=== PATIENT | female | born 1950 | race Caucasian/White ===

== ENCOUNTER → 2016-09-26 | Outpatient (CLI) | payer OTHER, MEDICARE | LOC: FIMAGING 13:20 | DX: Z12.31 Encounter for screening mammogram for malignant neoplasm of breast (principal) | CPT/HCPCS: G0202 ==

== ENCOUNTER → 2016-12-13 | Outpatient (CLI) | payer OTHER, MEDICARE | LOC: FIMAGING 09:59 | PROVIDERS: ATTEND Family Medicine | DX: Z13.820 Encounter for screening for osteoporosis (principal); M85.80 Other specified disorders of bone density and structure, unspecified site ==

== ENCOUNTER → 2017-03-09 | Outpatient (CLI) | payer OTHER, MEDICARE | LOC: FIMAGING 10:36 | PROVIDERS: ATTEND Family Medicine | DX: N28.1 Cyst of kidney, acquired (principal) ==

== ENCOUNTER → 2017-03-15 | Outpatient (CLI) | payer OTHER, MEDICARE ==
[~2017-03-15] MED LIST: IOPAMIDOL (ISOVUE-300) 100 ML BTL ONE
== END ==
LOC: CIMAGING 10:19
PROVIDERS: ATTEND Family Medicine
DX: N28.89 Other specified disorders of kidney and ureter (principal)
CPT/HCPCS: 74178; Q9967; 82565-PO

== ENCOUNTER 2017-04-19 07:17 | Inpatient (IN) | payer OTHER, MEDICARE ==
[2017-04-19] MEDS ORDERED: LIDOCAINE 1% 2 ML INJ ID PRN (07:48)
[2017-04-19] MEDS ORDERED: LR 1,000 ML IV ONE (07:48)
[2017-04-19] MEDS ORDERED: cefOXitin SODIUM 2 GM in D5W 100 ML IV ONE (08:30)
--- NOTE | 2017-04-19 08:50 | PDHPUP ---
History & Physical Update H&P update statement: This history and physical update is based on an assessment of the patient which was completed after admission or registration (within 24 hours), but prior to the surgery/procedure. H&P update: no change in patient's condition since H&P completed
[2017-04-19] MEDS ORDERED: MIDAZOLAM 2 MG/2 ML VIAL IVP ONE (08:52)
--- NOTE | 2017-04-19 08:55 | PDANEPAE ---
ANE History of Present Illness 67 yo with right kidney growth ANE Past Medical History - Cardiovascular History Hx Hypertension: Yes Hx Arrhythmias: No Hx Chest Pain: No Hx Coronary Artery / Peripheral Vascular Disease: No Hx CHF / Valvular Disease: No Hx Palpitations: No Cardiovascular History Comment: BP can run low. - Pulmonary History Hx COPD: No Hx Asthma/Reactive Airway Disease: No Hx Recent Upper Respiratory Infection: No Hx Oxygen in Use at Home: No Hx Sleep Apnea: No Sleep Apnea Screening Result - Last Documented: Positive Pulmonary History Comment: + triggers MOHSEN. Prone to bronchitis- last summer. - Neurologic History Hx Cerebrovascular Accident: No Hx Seizures: No Hx Dementia: No - Endocrine History Hx Diabetes: No - Renal History Hx Renal Disorders: Yes Renal History Comment: R renal mass - Liver History Hx Hepatic Disorders: No - Neurological & Psychiatric Hx Hx Neurological and Psychiatric Disorders: Yes Neurological / Psychiatric History Comment: numbness in bilat hands while sleeping- relieved by position change. Back pain. - Cancer History Hx Cancer: Yes Cancer History Comment: possible cancer R kidney - Congenital Disorder History Hx Congenital Disorders: No - GI History Hx Gastrointestinal Disorders: No - Other Health History Other Health History: hyperlipidema. Arthritic pain -hands-uses CBD/THC oil PRN. - Chronic Pain History Chronic Pain: No - Surgical History Prior Surgeries: C5/C6 ,C6/C7 fusion 10-07-15. LEFT FOOT FX. PARTIAL HYSTERECTOMY. FIBROID TUMOR ANE Review of Systems Review of systems is: negative Review of Systems: - Exercise capacity METS (RN): 4 METS ANE Patient History - Allergies Allergies/Adverse Reactions: roberto Allergy (Verified 03/28/17 14:29) wasp venom Allergy (Uncoded 03/28/17 14:29) Swelling/neck,face,throat - Home Medications Home Medications: Rosuvastatin Calcium [Crestor 5mg] 5 mg PO DAILY 09/20/15 [Last Taken 04/18/17 10:00] Valsartan/Hydrochlorothiazide [Diovan Hct 160-25 mg Tablet] 1 each PO DAILY 04/26 [Last Taken 04/18/17 10:00] Herbals/Supplements -Info Only 1 ea PO DAILY 03/27/17 [Last Taken 04/04/17] Cholecalciferol Vit D3 [Vitamin D3 (*)] 1,000 units PO DAILY 03/28/17 [Last Taken 04/12/17] - NPO status NPO Status: no food or drink >8 hours NPO Since - Liquids (Date): 04/18/17 NPO Since - Liquids (Time): 23:55 NPO Since - Solids (Date): 04/18/17 NPO Since - Solids (Time): 12:00 - Anes Hx Anes Hx: no prior problems - Smoking Hx Smoking Status: Former smoker - Alcohol Use Alcohol Use: Other - Family Anes Hx Family Anes Hx: none Family Hx Anesthesia Complications: NEG ANE Labs/Vital Signs - Vital Signs Blood Pressure: 113/66 Heart Rate: 79 Respiratory Rate: 16 O2 Sat (%): 95 Height: 167.64 cm Weight: 77.111 kg ANE Physical Exam - Airway Neck exam: decreased ROM Mallampati Score: Class 2 Mouth exam: normal dental/mouth exam - Pulmonary Pulmonary: no respiratory distress - Cardiovascular Cardiovascular: regular rate and rhythym - ASA Status ASA Status: II ANE Anesthesia Plan Anesthesia Plan: general endotracheal anesthesia
[2017-04-19] MEDS ORDERED: BUPIVACAINE 0.5% 30 ML SDV ONE (08:58)
[2017-04-19] MEDS ORDERED: MANNITOL 20% 100 GM/500 ML BAG IV ONE (08:58)
[2017-04-19] MEDS ORDERED: INDOCYANINE GREEN 25 MG VIAL ONE (08:58)
[2017-04-19] MEDS ORDERED: PROPOFOL 200 MG/20 ML VIAL ONE (09:06)
[2017-04-19] MEDS ORDERED: ROCURONIUM 50 MG/5 ML VIAL ONE (09:14)
[2017-04-19] MEDS ORDERED: NEOSTIGMINE METHYLSULFATE 3 MG/3 ML SYR ONE ×3 (09:45)
[2017-04-19] MEDS ORDERED: epHEDrine SULFATE 10 MG/ML SYR ONE (09:46)
[2017-04-19] MEDS ORDERED: THROMBIN(HUM PLAS)/FIBRINOG/CA 5 ML VIAL TP ONE (10:50)
[2017-04-19] MEDS ORDERED: NALOXONE HCL 0.4 MG/ML INJ IVP PRN ×2 (12:24→12:58)
[2017-04-19] MEDS ORDERED: PROMETHAZINE HCL 25 MG/ML INJ IVP PRN ×2 (12:24→12:57)
[2017-04-19] MEDS ORDERED: HYDROmorphONE/DILAUDID 1 MG/ML INJ IVP PRN (12:24)
--- NOTE | 2017-04-19 12:25 | POSTANESTH ---
Post Anesthetic Evaluation Cardiovascular Status: Normal, Stable Respiratory Status: Normal, Stable, Requires Airway Assist Level of Consciousness/Mental Status: Can Participate in Eval, Mildly Sleepy, Arousable Pain Control: Adequate, Prn Tx Ordered Nausea/Vomiting Control: Adequate, Prn Tx Ordered Complications Possibly Related to Anesthesia: None Noted
[2017-04-19] MEDS ORDERED: ONDANSETRON 4 MG/2 ML VIAL ONE (12:38)
[2017-04-19] MEDS: ONDANSETRON 4 MG/2 ML VIAL IVP PRN ×2 (12:40→12:51)
[2017-04-19] MEDS ORDERED: fentaNYL 100 MCG/2 ML INJ ONE (12:54)
[2017-04-19] MEDS: fentaNYL 100 MCG/2 ML INJ IVP PRN ×2 (12:55→13:02)
--- NOTE | 2017-04-19 12:55 | POSTOPPROG ---
Post Op Note Date of Operation: 04/19/17 Surgeon: Ori Flores (# [id number]) Green Building Architect: Asiya Larios CFA Anesthesia: GET(General Endotracheal) Pre-op Diagnosis: Right renal mass Post-op Diagnosis: Right renal mass Procedure: Robotic right partial nephrectomy w/ intraoperative ultrasound guidance Findings: See op note Inf/Abcess present in the surg proc area at time of surgery?: No EBL: 50-100 (75 cc) Complications: None Drains: Darryl Gan (10 Flat) Specimen(s): 1. Perirenal fat overlying tumor. 2. Right renal tumor.
[2017-04-19] MEDS ORDERED: ONDANSETRON 4 MG/2 ML VIAL IVP PRN (12:57)
[2017-04-19] MEDS ORDERED: HYDROmorphONE/DILAUDID 6 MG/30 ML PCA IV PRN (12:58)
[2017-04-19] MEDS: D5W 1/2 NS 1,000 ML IV SCH ×2 (14:02→21:49)
[2017-04-19] MEDS ORDERED: NS 1,000 ML IV ONE (18:00)
[2017-04-19] MEDS: HYDROCHLOROTHIAZIDE 25 MG TAB PO SCH (18:01)
[2017-04-19] MEDS: VALSARTAN 160 MG TAB PO SCH (18:03)
[2017-04-19] MEDS: cefOXitin SODIUM 2 GM in D5W 100 ML IV SCH (18:06)
[2017-04-20] MEDS: cefOXitin SODIUM 2 GM in D5W 100 ML IV SCH ×2 (01:24→08:51)
[2017-04-20 05:07] LABS: HEMOGLOBIN 11.5 g/dL (12.6-16.3); MEAN CELL HEMOGLOBIN 31.5 pg (27.9-34.1); MEAN CELL HEMOGLOBIN CONCENTR. 33.8 g/dL (32.4-36.7); MEAN CELL VOLUME 93.2 fL (81.5-99.8); RED BLOOD CELL COUNT 3.65 10^6/uL (4.18-5.33); RED CELL DISTRIBUTION WIDTH 13.5 % (11.5-15.2)
--- NOTE | 2017-04-20 05:20 | GOP ---
[f rep st] OPERATIVE REPORT DATE OF OPERATION: 04/19/2017 SURGEON: Ori Flores MD INDUSTRIAL HIRE SALES ASSISTANT: Asiya Larios CFA ANESTHESIA: General endotracheal anesthesia. PREOPERATIVE DIAGNOSIS: Abnormal right renal mass. POSTOPERATIVE DIAGNOSIS: Abnormal right renal mass. PROCEDURE PERFORMED: Robotically-assisted laparoscopic right partial nephrectomy with intraoperative ultrasound guidance. FINDINGS: Approximately 2 cm right upper pole posterolateral renal tumor. SPECIMENS: 1. Perirenal fat overlying tumor. 2. Right renal tumor. ESTIMATED BLOOD LOSS: Approximately 75 cc. INDICATIONS: This woman was recently found to have an incidental abnormal- appearing solid enhancing right renal mass. She presents for operative management at this time. The indications for the procedures, as well as potential risks and complications, were discussed with the patient preoperatively. She appeared to understand, her questions were answered, and she wished to proceed. Written informed surgical consent was thereafter obtained. DESCRIPTION OF PROCEDURE: The patient was brought to the operating room and administered general endotracheal anesthesia. An orogastric tube was placed by Anesthesia and removed at the conclusion of the case. The patient was then placed over the break of the table, and the table was flexed approximately 20 degrees. The patient was then placed in a right flank up position with a triangular pad placed behind her back. Her right flank was propped up approximately 45 degrees. The left leg was flexed at the knee, and the right leg was kept straight over it. A Blas catheter had been placed to gravity drainage by this point. All appropriate pressure points were padded. An axillary roll was placed. The patient was then secured to the table with several wide strips of tape from head to toe. The right arm was kept extended along her side in a foam trough while the left arm abducted less than 90 degrees on an arm board. Once the patient was thoroughly secured to the table, the table was tilted back and forth to maximum positions to ensure patient stability on the table. This was confirmed. The abdomen was then sterilely prepped and draped in standard fashion utilizing Ioban. A Veress needle was then used to obtain intraabdominal access in the right upper quadrant, close to the midline, approximately retirement between the xiphoid process and the umbilicus. The abdomen was insufflated 15 mmHg pressure, which was the intraabdominal pressure maintained throughout the majority of the case. A 12 mm laparoscopic port was then placed at this site, and proper intraabdominal placement was confirmed with the 0-degree 12 mm robotic camera. I then marked out my remaining port sites which were as follows: A 5 mm laparoscopic liver retractor port placed near the midline just below the xiphoid process, placed just to the right of the falciform ligament; an 8 mm robotic port placed along the right midclavicular line, just below the costal margin; another 8 mm port placed in the lower aspect of the right upper quadrant , roughly in midclavicular line; and a 12 mm laparoscopic industrial hire sales assistant port placed in the midline just below the umbilicus. All these ports were placed under direct vision without complication. At this point, the patient was tilted into right flank up 90-degree position. The robot was then docked perpendicular to the bed and brought in from the patient's back while keeping the center post of the robot in line with the 12 mm laparoscopic port to be used for the camera. The robotic arms were then secured to the appropriate ports. The 0-degree 12 mm camera was used throughout the remainder of the case. I then left the patient's bedside and entered the surgeon's robotic console. I carefully examined the abdominal cavity. The lateral edge of the colon was noted to extend over the midportion of the kidney. The liver was draped over the upper pole of the kidney. I carefully mobilized the colon off the kidney, extending this dissection inferior to the kidney, and reflected the colon medially across the midline. The portion of the duodenum overlying the renal hilum was then identified and carefully dissected across the midline with cold scissors dissection. The underlying vena cava could then be seen. I was then able to carefully identify the location of the renal vein and 2 separate renal arteries that were located just inferior to the renal vein. I completely skeletonized the hilum, and no other significant vascular structures providing blood flow to the kidney were identified. I mobilized the triangular ligament from the liver and transected it with scissors along the lateral abdominal wall. This provided more mobility to the liver and a ratcheted grasper was used through the 5 mm port in order to keep the liver retracted in a cephalad position throughout the remainder of the surgery. I then identified the ureter distal to to the lower pole of the kidney. The gonadal vein was identified and was left in a medial position and not harmed during the remainder of the operation. I then identified the psoas fascia below the perirenal fat inferior to the lower pole of the kidney. I then carefully retracted this up, including the ureter, and dissected posteriorly and medially up toward the previously dissected renal hilum. At this point, I then completed my hilar dissection in order to allow for placement of bulldog clamps during the nephrectomy portion the procedure. Once this was completed, I then excised the perirenal fat off the capsule of the kidney circumferentially. The tumor was identified along the upper pole posterolaterally. The overlying perirenal fat was carefully removed off the tumor and submitted as a permanent histologic specimen, labeled perirenal fat overlying renal tumor. The kidney was eventually completely freed so that it could be more easily mobilized and allow for better exposure of the portion of the kidney containing the mass. Intraoperative ultrasound was then performed. The location of the mass was confirmed sonographically. Measurements were taken, and a copy of these images were placed in the patient's hospital chart. Then, using the ultrasound image as a as a guide, along with robotic visualization, I scored the renal capsule around the tumor circumferentially with the monopolar scissors. An approximately 1 cm margin of normal appearing kidney was included along the circumferential margin, where the dissection would be performed. Once this was completed, vascular bulldog clamps were placed on the different hilar vessels. The 2 renal arteries were clamped 1st, followed by clamp placed over the vena cava. The time was was 11:03. I then used monopolar scissors dissection to excise the tumor completely. Nice adequate gross margins were obtained. The tumor was approximately 2 cm in greatest dimension, according to the intraoperative renal sonography measurements taken. Once the tumor had been excised, a 3-0 Vicryl V-Loc suture was used to reapproximate the deeper layer of the renal defect. A series of running 0 Vicryl sutures was then utilized to reapproximate the renal capsule of the created defect. This was performed utilizing a sliding clip renorrhaphy technique with Hem-o-Renetta clips. Once this closure was completed, the bulldog clamps were then removed; first, the clamp over the vein, followed by the clamps along the arteries. The time was 11:30. Warm ischemia time was therefore 27 mintues. The kidney vascularity was noted to increase visually immediately upon removing the clamps. There was no significant bleeding noted from the renorrhaphy closure. Hemostasis was otherwise present. Evicel was then placed over the renorrhaphy closure, as well as over the anterior aspect of the kidney. This was followed by draping the kidney with a large piece of Surgicel. The Surgicel was also placed over the renorrhaphy closure. The intraabdominal pressure was then temporarily turned down to 5 mmHg. No bleeding was identified. Renal hilar structures were intact. The ureter was intact. The liver was also noted to be unharmed from the operative procedure. The specimen was then retrieved within a 10 mm bag and eventually brought out through the industrial hire sales assistant port. The ratcheted grasper retracting the liver was removed, and the liver was allowed to fall back in its normal anatomic position. A 10 flat Darryl-Gan drain was then placed through the lower 8 mm robotic port in the right upper quadrant. It was ultimately secured to the skin on the outside with a 2-0 silk suture and connected to bulb suction. This completed the robotic portion of procedure. The robot was then undocked from the patient. A fascial closure device and an 0 Vicryl suture was utilized to reapproximate the anterior rectus fascia of the two 12 mm port sites. Before reapproximating the fascia of the industrial hire sales assistant port site, the specimen was delivered from this incision without the need to further extend the fascial opening. All the wounds were anesthetized with a total of 30 cc of 0.5% Marcaine without epinephrine. The skin edges at each of the wound sites were then reapproximated with running 4-0 Monocryl suture in a subcuticular fashion. The skin edges were then dressed with Dermabond. A dressing was placed at the drain site, followed by Tegaderm. The IBETH drain was connected to bulb suction. The patient was then placed back in the supine position. She was awakened, extubated, transferred to her bed, then taken to the recovery room. She tolerated the procedure well overall. COMPLICATIONS: None. DISPOSITION: She was transferred to the recovery room in stable condition and will be admitted for postoperative care. /[id number]/MODL MTDD
[2017-04-20 05:23] LABS: ANION GAP 9 mEq/L (8-16); CARBON DIOXIDE 27 mEq/l (22-31); CHLORIDE 104 mEq/L (97-110); CREATININE 1.5 mg/dL (0.6-1.0); GLOMERULAR FILTRATION RATE 35; GLUCOSE 141 mg/dL (70-100); POTASSIUM 4.1 mEq/L (3.5-5.2); SODIUM 140 mEq/L (134-144)
[2017-04-20] MEDS: HYDROCHLOROTHIAZIDE 25 MG TAB PO SCH (08:54)
[2017-04-20] MEDS: VALSARTAN 160 MG TAB PO SCH (08:54)
[2017-04-20] MEDS ORDERED: HYDROCHLOROTHIAZIDE PO SCH (09:00)
[2017-04-20] MEDS ORDERED: [UNRECOGNIZED DRUG - OTHER] PO SCH (09:00)
[2017-04-20] MEDS ORDERED: VALSARTAN PO SCH (09:00)
--- NOTE | 2017-04-20 10:02 | SOAPPROG ---
SOAP Progress Note Assessment/Plan: Assessment: POD 1 s/p robotic right partial nephrectomy - stable. Plan: 1. Continue postop care. 2. Advance diet, d/c Blas, switch to oral narcotics, ambulate, heplock IV. Subjective: No complaints. Pain controlled w/ ELECTRICAL APPRENTICE. Tolerated CLD. No ambulation yet. Objective: Vital Signs Temp Pulse Resp BP Pulse Ox 36.9 C 95 18 87/58 L 95 04/20/17 07:26 04/20/17 07:26 04/20/17 07:26 04/20/17 07:26 04/20/17 07:26 Laboratory Results 04/20/17 04:31 04/20/17 04:31 04/19/17 04/20/17 04/21/17 05:59 05:59 05:59 Intake Total 4194 Output Total 942 65 Balance 3252 -65 Physical Exam - Physical Exam General Appearance: WD/WN, alert, no apparent distress Abdomen: soft (mild RUQ tenderness), other (incisions c/d/i, IBETH w/ small amount of serosanguinous drainage) Skin: normal color, warm/dry Extremities: non-tender, normal inspection Neuro/Psych: alert, normal mood/affect, oriented x 3 ICD10 Worksheet Patient Problems: Problems Problem Status Onset Cervical vertebral fusion Acute
[2017-04-20] MEDS: OXYCODONE/APAP 5/325 TAB PO PRN ×3 (13:27→21:35)
--- NOTE | 2017-04-20 14:38 | ASMTCMCOM ---
CM Note CM Note Notes: Chart reviewed, Patient s/p partial nephrectomy. Met with pt to review POC. She states she is well supported at home no needs identified. CM available should needs arise. Date Signed: 04/20/2017 02:37 PM Electronically Signed By:Urszula Willard RN
[2017-04-21] MEDS: OXYCODONE/APAP 5/325 TAB PO PRN ×4 (01:24→19:20)
[2017-04-21] MEDS: HYDROCHLOROTHIAZIDE 25 MG TAB PO SCH (08:20)
[2017-04-21] MEDS: VALSARTAN 160 MG TAB PO SCH (08:20)
--- NOTE | 2017-04-21 10:25 | SOAPPROG ---
SOAP Progress Note Assessment/Plan: Assessment: s/p partial nephrectomy low grade temp- likely atlectasis mild post operative ileus- tolerating diet but no flatus post operative hypoxia Plan: Encourage IS and ambulation Await flatus am labs wean O2 04/21/17 10:23 Subjective: Pain reasonably controlled with po pain meds. Still on O2. No flatus. no N/ V. C/o pain with inspiration Objective: Vital Signs Temp Pulse Resp BP Pulse Ox 36.9 C 88 16 93/70 L 93 04/21/17 07:31 04/21/17 07:31 04/21/17 07:31 04/21/17 07:31 04/21/17 07:31 Laboratory Results 04/20/17 04:31 04/20/17 04:31 04/20/17 04/21/17 04/22/17 05:59 05:59 05:59 Intake Total 4194 698 Output Total 942 285 70 Balance 3252 413 -70 Physical Exam - Physical Exam General Appearance: alert, no apparent distress Respiratory: No respiratory distress Abdomen: soft, other (mild distention, wounds CDI) Neuro/Psych: normal mood/affect, oriented x 3 ICD10 Worksheet Patient Problems: Problems Problem Status Onset Cervical vertebral fusion Acute
[2017-04-22] MEDS: OXYCODONE/APAP 5/325 TAB PO PRN (03:48)
[2017-04-22 05:11] LABS: % IMMATURE GRANULYOCYTES 0.4 % (0.0-1.1); ABSOLUTE IMMATURE GRANULOCYTES 0.05 10^3/uL (0.00-0.10); ADD DIFF? NO; ADD MORPH? NO; ADD SCAN? NO; ATYPICAL LYMPHOCYTE FLAG 0 (0-99); FRAGMENT RBC FLAG 0 (0-99); HEMATOCRIT 33.7 % (38.0-47.0); HEMOGLOBIN 11.7 g/dL (12.6-16.3); LEFT SHIFT FLG 0 (0-99); LIPEMIA HEMOLYSIS FLAG 90 (0-99); MEAN CELL HEMOGLOBIN 31.8 pg (27.9-34.1); MEAN CELL HEMOGLOBIN CONCENTR. 34.7 g/dL (32.4-36.7); MEAN CELL VOLUME 91.6 fL (81.5-99.8); MEAN PLATELET VOLUME 10.6 fL (8.7-11.7); PLATELET CLUMPS FLAG 10 (0-99); PLATELET COUNT 165 10^3/uL (150-400); RED BLOOD CELL COUNT 3.68 10^6/uL (4.18-5.33); RED CELL DISTRIBUTION WIDTH 13.8 % (11.5-15.2)
[2017-04-22 05:34] LABS: ANION GAP 11 mEq/L (8-16); CALCIUM 8.2 mg/dL (8.5-10.4); CARBON DIOXIDE 24 mEq/l (22-31); CHLORIDE 101 mEq/L (97-110); CREATININE 1.3 mg/dL (0.6-1.0); GLOMERULAR FILTRATION RATE 41; GLUCOSE 124 mg/dL (70-100); POTASSIUM 3.6 mEq/L (3.5-5.2); SODIUM 136 mEq/L (134-144)
[2017-04-22] MEDS: HYDROCHLOROTHIAZIDE 25 MG TAB PO SCH (08:46)
[2017-04-22] MEDS: VALSARTAN 160 MG TAB PO SCH (08:46)
[2017-04-22] MEDS ORDERED: ACETAMINOPHEN 500 MG TAB PO PRN (09:24)
--- NOTE | 2017-04-22 09:29 | SOAPPROG ---
SOAP Progress Note Assessment/Plan: Assessment: s/p partial nephrectomy Fever, leukocytosis- likely atlectasis, no signs or symptoms of intraabdominal process or wound infection post operative hypoxia- improving Plan: Encourage IS and ambulation CXR, urine culture. Blood cultures if T>101 am labs wean O2 Plan for d/c once fevers resolved 04/21/17 10:23 04/22/17 09:26 Subjective: Had chills, fever, and rigors last night. Small amount of flatus. Pain improved. oxygenation a bit better Objective: Vital Signs Temp Pulse Resp BP Pulse Ox 36.7 C 96 18 105/63 90 L 04/22/17 08:00 04/22/17 08:00 04/22/17 08:00 04/22/17 08:00 04/22/17 08:00 Laboratory Results 04/22/17 04:34 04/22/17 04:34 04/21/17 04/22/17 04/23/17 05:59 05:59 05:59 Intake Total 698 250 Output Total 285 100 Balance 413 150 Physical Exam - Physical Exam General Appearance: alert Respiratory: No respiratory distress Abdomen: soft, other (incisions non tender, no rebound, no erythema or streaking ) ICD10 Worksheet Patient Problems: Problems Problem Status Onset Cervical vertebral fusion Acute
[2017-04-22] MEDS: oxyCODONE IR 5 MG TAB PO PRN ×3 (09:41→21:31)
[2017-04-23 04:31] LABS: % IMMATURE GRANULYOCYTES 0.3 % (0.0-1.1); ABSOLUTE IMMATURE GRANULOCYTES 0.04 10^3/uL (0.00-0.10); ADD DIFF? NO; ADD MORPH? NO; ADD SCAN? NO; ATYPICAL LYMPHOCYTE FLAG 0 (0-99); FRAGMENT RBC FLAG 0 (0-99); HEMATOCRIT 35.5 % (38.0-47.0); HEMOGLOBIN 12.4 g/dL (12.6-16.3); LEFT SHIFT FLG 10 (0-99); LIPEMIA HEMOLYSIS FLAG 90 (0-99); MEAN CELL HEMOGLOBIN 32.4 pg (27.9-34.1); MEAN CELL HEMOGLOBIN CONCENTR. 34.9 g/dL (32.4-36.7); MEAN CELL VOLUME 92.7 fL (81.5-99.8); MEAN PLATELET VOLUME 11.1 fL (8.7-11.7); PLATELET CLUMPS FLAG 0 (0-99); PLATELET COUNT 203 10^3/uL (150-400); RED BLOOD CELL COUNT 3.83 10^6/uL (4.18-5.33); RED CELL DISTRIBUTION WIDTH 14.1 % (11.5-15.2)
--- NOTE | 2017-04-23 09:33 | SOAPPROG ---
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 CXR's, urine and blood cultures negative. PE is negative for fever source. Plan: 1. Continue to monitor today. If she spikes more fevers then will have her get a CT scan. 2. Continue regular diet & ambulation. 3. Benign pathology reviewed w/ pt. & today. Subjective: No complaints except for fevers. Appetite still poor, but she is eating. Passed flatus over the weekend. Voiding well, ambulating independently. Objective: Vital Signs Temp Pulse Resp BP Pulse Ox 37.2 C 92 17 125/77 H 92 04/23/17 08:20 04/23/17 08:20 04/23/17 08:20 04/23/17 08:20 04/23/17 08:20 Laboratory Results 04/23/17 02:45 04/22/17 04:34 04/22/17 04/23/17 04/24/17 05:59 05:59 05:59 Intake Total 250 2049 Output Total 100 Balance 150 2049 Physical Exam - Physical Exam General Appearance: WD/WN, alert, no apparent distress Abdomen: soft (mild RUQ tenderness, incisions c/d/i) Skin: normal color, warm/dry Extremities: non-tender, normal inspection Neuro/Psych: alert, normal mood/affect, oriented x 3 ICD10 Worksheet Patient Problems: Problems Problem Status Onset Cervical vertebral fusion Acute
[2017-04-23] MEDS: VALSARTAN 160 MG TAB PO SCH (09:45)
[2017-04-23] MEDS: HYDROCHLOROTHIAZIDE 25 MG TAB PO SCH (09:45)
[2017-04-23] MEDS: oxyCODONE IR 5 MG TAB PO PRN ×2 (09:50→14:28)
[2017-04-23 11:59] VITALS: TEMP 99.2
[2017-04-23 15:16] VITALS: BP 124/68; PULSE 103; RESP 17
[2017-04-23 15:28] VITALS: O2SAT 87
--- NOTE | 2017-04-23 17:09 | SOAPPROG ---
SOAP Progress Note Assessment/Plan: Assessment: 1. 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 2. Enterococcus UTI -- likely the source of her intermittent fevers. Plan: 1. D/C home on Augmentin and O2. 2. Start Augmentin this evening prior to d/c. (d/c summ. # [id number]) Subjective: No new complaints. Objective: Vital Signs Temp Pulse Resp BP Pulse Ox 37.3 C 103 H 17 124/68 H 87 L 04/23/17 15:13 04/23/17 15:13 04/23/17 15:13 04/23/17 15:13 04/23/17 15:28 Laboratory Results 04/23/17 02:45 04/22/17 04:34 04/22/17 04/23/17 04/24/17 05:59 05:59 05:59 Intake Total 250 2049 Output Total 100 Balance 150 2049 ICD10 Worksheet Patient Problems: Problems Problem Status Onset Cervical vertebral fusion Acute
--- NOTE | 2017-04-23 17:10 | PDHOMEO2F ---
Home Oxygen Face to Face Home Orders: I certify that a physician or a nurse practitioner or physician's producer assistant has had a [id number] encounter with this patient on the date of this order due to the diagnosis listed, which relates to the primary reason the patient requires home oxygen. Alternative treatments have been tried, or considered, and deemed ineffective. It is anticipated that supplemental oxygen will result in improvement with treatment. Home oxygen qualifying diagnosis: Hypoxia SpO2 on room air (%): 87% Frequency of home oxygen needed: continuous Home oxygen liters per minute: 3-4 L Home oxygen delivery device: nasal cannula Concentrator: Yes E-tanks for mobility and back up: Yes If ordering portable O2, is the patient mobile in the home?: Yes I certify that, based on these findings, the home oxygen is medically necessary for this patient for the following length of time. Length of time home oxygen needed: 1 week
[2017-04-23] MEDS ORDERED: AMOX/CLAVULANATE 500/125 MG TAB PO SCH (17:30)
--- NOTE | 2017-04-24 05:15 | GDS ---
[f rep st] DISCHARGE SUMMARY ADMIT DIAGNOSIS: Abnormal right renal mass. DISCHARGE DIAGNOSES: 1. Oncocytoma. 2. Hypoxia. 3. Enterococcal urinary tract infection. PROCEDURES: Robotically-assisted laparoscopic right partial nephrectomy on 04/19/2017. HOSPITAL COURSE: The patient underwent the above-mentioned operative procedure on the day of admissi on. Please refer to the operative report for details regarding this. Postoperatively, the patient d id well overall. However, she did intermittently run fevers up to approximately 38.5 degrees Celsius . Urine and blood cultures were obtained on 04/22. Preliminary results on urine culture revealed gr eater than 100,000 colonies of Enterococcus faecalis, with complete identification and sensitivity st ill pending. Blood cultures have been negative to date. Chest x-ray postoperatively was also negati ve for cause of fever. She otherwise did well from a postoperative standpoint. Her vital signs were stable and postoperative laboratory work was relatively unremarkable. She was tolerating a regular diet by postoperative day 2 and was ambulating by postoperative day 1. She was voiding well after Fo lorne catheter removal and having flatus. Her postoperative physical exam was unremarkable and incisio ns were healing appropriately. Darryl-Gan drainage was relatively unremarkable postoperatively. Her postoperative creatinine was consistent with serum. This was removed on postoperative day 3. Sonia cartagena was then started on Augmentin 500 mg b.i.d. for treatment of her enterococcal UTI and discharged on postoperative day 4 with a prescription for this. She is also being discharged on home oxygen due t o her postoperative hypoxia. The patient is being discharged on her regular medications as well as A ugmentin 500 mg b.i.d., as well as oxycodone 5 mg p.r.n. pain. Activity restriction instructions [place] e been provided. She will continue with a regular diet. She has been instructed to return to my off ice in approximately 3-4 weeks. /[id number]/MODL
--- NOTE | 2017-04-26 14:19 | PQFORM ---
PHYSICIAN QUERY FORM Needs Your Response This query form is being sent to you to assure this patient record is coded properly. Please respond to the question below: SOLE ROUGHER QUESTION: Dear Dr. Flores, In reviewing this patients medical record it is noted patient had the diagnosis of 'Atelectasis.' In the SOAP notes dated 04/21-04/22 patient was noted to have a "low grade temperature- likely atelectasis." On the 04/22 chest X-Ray patient was noted to have "Bilateral lower lobe atelectasis." After study, should the diagnosis of "Atelectasis" be included in the Discharge Summary? Yes __xx___ No Unable to determine Other more appropriate diagnosis Thank you DANILO Sheppard HIM/Coding Dept. [phone] INSTRUCTIONS FOR RESPONSE: Answer question by clicking on the "Edit Document" button. Move cursor to area below the stars. When complete, hit "Save." Click on the "Sign" button, then click "Sign" again. Type in your PIN and hit "Enter." MTDD
== END 2017-04-23 19:09 | disposition home or self-care (01) | DRG 687 ==
LOC: INTOOBSV 07:17 → F3E 07:17 → F1N 07:37 → OBSVTOIN 04-20 15:15
PROVIDERS: ADMIT Specialist; ATTEND Specialist
DX: D30.01 Benign neoplasm of right kidney (principal); N39.0 Urinary tract infection, site not specified; R09.02 Hypoxemia; B95.2 Enterococcus as the cause of diseases classified elsewhere; I10 Essential (primary) hypertension; G47.33 Obstructive sleep apnea (adult) (pediatric); E78.5 Hyperlipidemia, unspecified; Z87.891 Personal history of nicotine dependence
CPT/HCPCS: J0694; J1170; J2250; J2405; J2550; J2704; J2710; J3010

== ENCOUNTER → 2017-05-24 | Outpatient (CLI) | payer OTHER, MEDICARE | LOC: FIMAGING 10:11 | PROVIDERS: ATTEND Specialist | DX: Z08 Encounter for follow-up examination after completed treatment for malignant neoplasm (principal); Z90.5 Acquired absence of kidney | CPT/HCPCS: 74178; Q9967 ==

== ENCOUNTER → 2017-12-11 | Outpatient (CLI) | payer OTHER, MEDICARE | LOC: GIMAGING 14:36 | PROVIDERS: ATTEND Family Medicine | DX: S92.512A Displaced fracture of proximal phalanx of left lesser toe(s), initial encounter for closed fracture (principal) | CPT/HCPCS: 73660-PO ==

== ENCOUNTER → 2018-01-29 | Outpatient (CLI) | payer OTHER, MEDICARE | LOC: FIMAGING 15:20 | PROVIDERS: ATTEND Family Medicine | DX: K57.30 Diverticulosis of large intestine without perforation or abscess without bleeding (principal); N28.1 Cyst of kidney, acquired; Z90.5 Acquired absence of kidney | CPT/HCPCS: 74177; Q9967; 82565-PO ==

== ENCOUNTER 2018-04-08 09:02 | Emergency (ER) | payer OTHER, MEDICARE ==
--- NOTE | 2018-04-08 09:13 | EDPHY ---
H & P Stated Complaint: general abd pain/diarrhea Source: Patient Exam Limitations: No limitations - Personal History Current Tetanus Diphtheria and Acellular Pertussis (TDAP): Yes - Medical/Surgical History Hx Asthma: No Hx Chronic Respiratory Disease: No Hx Diabetes: No Hx Cardiac Disease: No Hx Renal Disease: No Hx Cirrhosis: No Hx Alcoholism: No Hx HIV/AIDS: No Hx Splenectomy or Spleen Trauma: No Other PMH: DDD, HTN, seasonal allergies. partial nehrectomy/htn - Social History Smoking Status: Former smoker Time Seen by Provider: 04/08/18 09:15 HPI/ROS: HPI: This is a 68-year-old female who presents with Chief Complaint: general abd pain/diarrhea Location: Periumbilical abdominal Quality: Pain Duration: Since Sunday morning Signs and Symptoms: no fever, + nausea, no vomiting, no hematemesis, no blood in stool, no abdominal bloating, + diarrhea, no back pain, no urinary symptoms, no vaginal bleeding/discharge, no indigestion, no chest pain, no shortness of breath Timing: Acute onset, worsening Severity: Moderate Context: Patient presents today of waking up Sunday morning with periumbilical, [id number], cramping, nonradiating pain. She reports that she has had decreased appetite and some nausea. She has complained of several loose stools per day. Today the pain has increased in intensity. History of diverticulitis approximately 2 months ago treated with an antibiotic of unknown name. She was then seen by [facility] 2 weeks after her flare-up and had a colonoscopy performed and was"normal" per patient. Denies recent foreign travel, antibiotic use, concern for food poisoning. Modifying Factors: Tylenol gives mild transient relief Comment: ROS: A comprehensive 10 system review of systems is otherwise negative aside from elements mentioned in the history of present illness. MEDICAL/SURGICAL/SOCIAL HISTORY: Medical history: DDD, HTN, seasonal allergies, hypertension Surgical history: Partial nephrectomy Social history: Retired. Nonsmoker. Family history noncontributory. CONSTITUTIONAL: Nontoxic-appearing, polite and cooperative, elderly white female, awake and alert, no obvious distress HEENT: Atraumatic and normocephalic, PERRL, EOMI. Wears glasses, Nares patent; no rhinorrhea; no nasal mucosal edema. Tympanic membranes clear. Oropharynx clear, no exudate and moist pink mucosa. Airway patent. No lymphadenopathy. No meningismus. Cardiovascular: Normal S1/S2, regular rate, regular rhythm, without murmur rub or gallop. PULMONARY/CHEST: Symmetrical and nontender. Clear to auscultation bilaterally. Good air movement. No accessory muscle usage. ABDOMEN: Soft, nondistended, periumbilical and lower quadrant reproducible tenderness, no rebound, no guarding, no peritoneal signs, no masses or organomegaly. No CVAT. Hyperactive bowel sounds heard in the lower quadrants and normoactive bowel sounds heard in the upper quadrants EXTREMITIES: 2/2 pulses, strength 5/5, no deformities, no clubbing, no cyanosis or edema. NEUROLOGICAL: no focal neuro deficits. GCS 15. SKIN: Warm and dry, no erythema. no rash. Good capillary refill. (Dina Velazco) Constitutional: Initial Vital Signs Temperature (C) 36.6 C 04/08/18 09:06 Heart Rate 74 04/08/18 09:06 Respiratory Rate 18 04/08/18 09:06 Blood Pressure 127/80 H 04/08/18 09:06 O2 Sat (%) 98 04/08/18 09:06 O2 Delivery Mode Room Air Allergies/Adverse Reactions: roberto Allergy (Verified 04/08/18 09:02) wasp venom Allergy (Uncoded 03/28/17 14:29) Swelling/neck,face,throat Home Medications: Medication Instructions Recorded Rosuvastatin Calcium [Crestor 5mg] 5 mg PO DAILY 09/20/15 Valsartan/Hydrochlorothiazide 1 each PO DAILY 09/20/15 [Diovan Hct 160-25 mg Tablet] Herbals/Supplements -Info Only 1 ea PO DAILY 03/27/17 Cholecalciferol Vit D3 [Vitamin D3 1,000 units PO DAILY 03/28/17 (*)] Ciprofloxacin [Cipro] 500 mg PO BID #20 tab 04/08/18 Hydrochlorothiazide 04/08/18 metroNIDAZOLE [Flagyl 500 mg (*)] 500 mg PO TID #30 tab 04/08/18 Medical Decision Making - Diagnostics Imaging Results: Imaging Impressions Abdomen CT 04/08/18 09:14 Impression: 1. Acute diverticulitis of the sigmoid colon in a similar segment of sigmoid colon as seen previously. 2. Postsurgical changes of partial nephrectomy right kidney stable in appearance. Renal cortical cysts. Results called and discussed with Dina Velazco on 04/08/2018 at 10:30 a.m. ED Course/Re-evaluation: Vital signs reviewed and stable upon arrival. No systemic signs. IV access and laboratory studies obtain. CT abdomen and pelvis scan ordered to evaluate for diverticulitis, perforation, abscess. Given 1 L normal saline, IV morphine 4 mg (patient refused), IV Zofran 4 mg 0940: Labs reviewed. WBC 8.16, H&H 14/40.2, BUN 24/1.2; chart review shows on January 29, 2018 BUN 26 and creatinine 1.5- this appears to be patient's baseline. No signs of elevated LFTs/pancreatitis/electrolyte imbalance. 0955: Urinalysis shows 4+ bacteria, 5-10 WBCs, 4+ epithelial cells; sent for urine culture; will likely give fluoroquinolone 1030: Called by radiologist, Dr. Sheth, who advised that CT abdomen and pelvis scan shows diverticulitis in the same spot as 2 months ago but no perforation, abscess. Patient given Cipro and Flagyl. Gastroenterology follow- up. Advised diverticular diet. Tolerating oral liquids and adequate pain control so appropriate to treat outpatient. This patient was seen under the supervision of my secondary supervising physician. I evaluated care for this patient independently. Discussed this patient with Dr. Oates. (Dina Velazco) Differential Diagnosis: Abdominal pain including but not limited to appendicitis, cholecystitis, gastritis and urinary tract infection. (Dina Velazco) - Data Points Laboratory Results: Laboratory Results 04/08/18 09:15 04/08/18 09:15 04/08/18 04/08/18 04/08/18 09:29 09:15 09:15 WBC 8.16 10^3/uL 10^3/uL (3.80-9.50) RBC 4.47 10^6/uL 10^6/uL (4.18-5.33) Hgb 14.0 g/dL g/dL (12.6-16.3) Hct 40.2 % % (38.0-47.0) MCV 89.9 fL fL (81.5-99.8) MCH 31.3 pg pg (27.9-34.1) MCHC 34.8 g/dL g/dL (32.4-36.7) RDW 13.2 % % (11.5-15.2) Plt Count 250 10^3/uL 10^3/uL (150-400) MPV 10.0 fL fL (8.7-11.7) Neut % (Auto) 67.6 % % (39.3-74.2) Lymph % (Auto) 25.9 % % (15.0-45.0) Chambers % (Auto) 5.3 % % (4.5-13.0) Eos % (Auto) 0.4 % L % (0.6-7.6) Baso % (Auto) 0.6 % % (0.3-1.7) Nucleat RBC Rel Count 0.0 % % (0.0-0.2) Absolute Neuts (auto) 5.52 10^3/uL 10^3/uL (1.70-6.50) Absolute Lymphs (auto) 2.11 10^3/uL 10^3/uL (1.00-3.00) Absolute Monos (auto) 0.43 10^3/uL 10^3/uL (0.30-0.80) Absolute Eos (auto) 0.03 10^3/uL 10^3/uL (0.03-0.40) Absolute Basos (auto) 0.05 10^3/uL 10^3/uL (0.02-0.10) Absolute Nucleated RBC 0.00 10^3/uL 10^3/uL (0-0.01) Immature Gran % 0.2 % % (0.0-1.1) Immature Gran # 0.02 10^3/uL 10^3/uL (0.00-0.10) Sodium 140 mEq/L mEq/L (135-145) Potassium 4.1 mEq/L mEq/L (3.3-5.0) Chloride 101 mEq/L mEq/L (97-110) Carbon Dioxide 25 mEq/l mEq/l (22-31) Anion Gap 14 mEq/L mEq/L (6-14) BUN 24 mg/dL H mg/dL (7-23) Creatinine 1.2 mg/dL H mg/dL (0.6-1.0) Estimated GFR 45 Glucose 95 mg/dL mg/dL (70-100) Calcium 9.4 mg/dL mg/dL (8.5-10.4) Total Bilirubin 0.7 mg/dL mg/dL (0.1-1.4) Conjugated Bilirubin 0.3 mg/dL mg/dL (0.0-0.5) Unconjugated Bilirubin 0.4 mg/dL mg/dL (0.0-1.1) AST 23 IU/L IU/L (14-46) ALT 28 IU/L IU/L (9-52) Alkaline Phosphatase 55 IU/L IU/L (38-126) Total Protein 7.2 g/dL g/dL (6.3-8.2) Albumin 4.2 g/dL g/dL (3.5-5.0) Lipase 282 IU/L IU/L (23-300) Urine Color ANDREWS Urine Appearance MODERATELY TURBID Urine pH 5.0 (5.0-7.5) Ur Specific [place] 1.028 (1.002-1.030) Urine Protein 1+ H (NEGATIVE) Urine Ketones TRACE H (NEGATIVE) Urine Blood NEGATIVE (NEGATIVE) Urine Nitrate NEGATIVE (NEGATIVE) Urine Bilirubin NEGATIVE (NEGATIVE) Urine Urobilinogen 2.0 EU H EU (0.2-1.0) Ur Leukocyte Esterase NEGATIVE (NEGATIVE) Urine RBC NONE SEEN /hpf /hpf (0-3) Urine WBC 5-10 /hpf H /hpf (0-3) Ur Epithelial Cells 4+ /lpf H /lpf (NONE-1+) Urine Bacteria 4+ /hpf H /hpf (NONE SEEN) Urine Mucus TRACE /lpf /lpf (NONE-1+) Urine Glucose NEGATIVE (NEGATIVE) Medications Given: Discontinued Medications Ciprofloxacin (Cipro) 500 mg PO EDNOW ONE PRN Reason: Protocol Stop: 04/08/18 10:28 Last Admin: 04/08/18 10:47 Dose: 500 mg Sodium Chloride (Ns) 1,000 mls @ 0 mls/hr IV EDNOW ONE; Wide Open PRN Reason: Protocol Stop: 04/08/18 09:15 Last Admin: 04/08/18 09:24 Dose: 1,000 mls Metronidazole (Flagyl) 500 mg PO EDNOW ONE PRN Reason: Protocol Stop: 04/08/18 10:28 Last Admin: 04/08/18 10:46 Dose: 500 mg Morphine Sulfate (Morphine) 4 mg IVP EDNOW ONE Stop: 04/08/18 09:15 Last Admin: 04/08/18 10:35 Dose: Not Given Ondansetron HCl (Zofran) 4 mg IVP EDNOW ONE Stop: 04/08/18 09:15 Last Admin: 04/08/18 10:35 Dose: Not Given Departure - Departure Disposition: Home, Routine, Self-Care Clinical Impression: Cystitis, Diverticulitis of colon (without mention of hemorrhage) Condition: Good Instructions: Diverticulitis (ED), Urinary Tract Infection in Women (ED), Diverticulitis Diet (ED) Additional Instructions: Consume a minimum of 8-10 glasses of water or electrolyte fluid replacement drinks that include Gatorade, Powerade, Pedialyte. Eat a bland/diverticular diet for the next 48 hours and then slowly advance as tolerated. Take Cipro and Flagyl as directed. Do not skip a dose. Follow-up with primary care provider in the next 5-7 days if symptoms are not improving. Return to the Emergency Room if you spike a fever > 102 F, or experience intractable abdominal pain/nausea/vomiting. Referrals: Loc Collier DO [Primary Care Provider] - As per Instructions Nadir Holbrook MD [Medical Doctor] - As per Instructions Prescriptions: Ciprofloxacin [Cipro] 500 mg PO BID #20 tab metroNIDAZOLE [Flagyl 500 mg (*)] 500 mg PO TID #30 tab
[2018-04-08] MEDS ORDERED: NS 1,000 ML IV ONE (09:14)
[2018-04-08] MEDS ORDERED: ONDANSETRON 4 MG/2 ML VIAL IVP ONE (09:14)
[2018-04-08 09:29] LABS: PLATELET COUNT 250 10^3/uL (150-400)
[2018-04-08] MEDS ORDERED: IOPAMIDOL (ISOVUE-300) 100 ML BTL ONE (09:44)
[2018-04-08] MEDS ORDERED: metroNIDAZOLE 500 MG TAB PO ONE (10:27)
[2018-04-08] MEDS ORDERED: CIPROFLOXACIN 500 MG TAB PO ONE (10:27)
[2018-04-08 10:36] VITALS: BP 108/71
== END 2018-04-08 10:52 | disposition home or self-care (01) ==
DX: N30.90 Cystitis, unspecified without hematuria (principal); K57.32 Diverticulitis of large intestine without perforation or abscess without bleeding; N28.1 Cyst of kidney, acquired; E86.9 Volume depletion, unspecified; I10 Essential (primary) hypertension; Z90.5 Acquired absence of kidney
CPT/HCPCS: 74177; 96360; 99285; Q9967

== ENCOUNTER → 2018-09-23 | Outpatient (CLI) | payer OTHER, MEDICARE | LOC: FIMAGING 08:31 | PROVIDERS: ATTEND Family Medicine | DX: Z13.820 Encounter for screening for osteoporosis (principal); Z78.0 Asymptomatic menopausal state ==

== ENCOUNTER → 2018-10-01 | Outpatient (CLI) | payer OTHER, MEDICARE | LOC: FIMAGING 14:29 | PROVIDERS: ATTEND Family Medicine | DX: Z12.31 Encounter for screening mammogram for malignant neoplasm of breast (principal) ==